=== PATIENT | female | born 1945 | race Caucasian/White ===

== ENCOUNTER → 2018-02-01 | Day surgery (SDC) | payer OTHER, MEDICARE ==
[~2018-02-01] VITALS: Ht 165.1 cm; Wt 68.0 kg
[~2018-02-01] MED LIST: ASPIRIN EC81 M1 PO; CALCIUM + VIT1 EACH PO; CENTRUM SILVER1 EAC3 PO; HYDROEYE PO; L-LYSINE500 M3 PO; NIFEDIPINE ER30 M1 PO; PROPRANOLOL HCL20 M1 PO; VESICARE10 MG PO; VITAMIN D1000 UNIT PO
[2018-02-01 08:03] LABS: ABSOLUTE BASOPHIL COUNT 0 /CUMM (0.0-0.2); ABSOLUTE EOSINOPHIL COUNT 0.1 /CUMM (0.0-0.7); ABSOLUTE GRANULOCYTE CT 3.5 /CUMM (1.4-6.5); ABSOLUTE LYMPH COUNT 1.2 /CUMM (1.2-3.4); ABSOLUTE MONOCYTE COUNT 0.5 /CUMM (0.10-0.60); BASOPHIL % 0.3 % (0.0-2.0); EOSINOPHIL % 1.4 % (0-5); HEMATOCRIT 37.3 % (37-47); MEAN CORPUSCULAR HGB 30.3 PG (27.0-31.0); MEAN CORPUSCULAR HGB CONC 33.5 G/DL (33.0-37.0); MEAN CORPUSCULAR VOLUME 90.4 FL (81.0-99.0); MEAN PLATELET VOLUME 8.3 FL (7.4-10.4); PLATELET COUNT 475 /CUMM (130-400); RBC DISTRIBUTION WIDTH 13.5 % (11.5-14.5); RED BLOOD CELL CT 4.13 /CUMM (4.20-5.40); WHITE BLOOD CELL COUNT 5.3 /CUMM (4.8-10.8)
--- NOTE | 2018-02-01 14:22 | Operative Report ---
Operative/Inv Procedure Report Surgery Date: 02/01/18 Name of Procedure: D&C hysteroscopy Pre-Operative Diagnosis: Endometrial polyp Post-Operative Diagnosis: Same, pathology pending Estimated Blood Loss: scant Surgeon/Warp Coiler: Nathalia Ramos MD Anesthesia: laryngeal mask airway Specimens: A scant amount of endometrial tissue sent to pathology Complications: None Condition: Stable Operative Indication: The patient is a 72-year-old para 2 who had a transvaginal ultrasound performed for pelvic pain. The ultrasound findings were significant for a fluid-filled endometrial cavity and a 5 mm complex area on the posterior uterine wall. The endometrial lining was otherwise noted to be 2 mm. Attempt to perform office hysteroscopy failed due to a severely stenotic cervical os. The recommendation was then made for D&C hysteroscopy to be performed under anesthesia. Operative/Procedure Note Note: The patient was taken to the operating room and placed in dorsal supine position. LMA was achieved without difficulty. The patient was then placed in dorsal lithotomy position and prepped and draped in the usual sterile fashion. The patient was then straight cathed and approximately 200 mL of clear yellow urine was discarded. A sterile speculum was then placed in the patient's vagina. A single-tooth tenaculum was applied to the anterior lip of the cervix. The cervix was then serially dilated beginning with the nasal lacrimal duct dilators to accommodate the diagnostic hysteroscope. Saline hysteroscope was then inserted to the uterus and an approximately 5 mm raised flattened area in the posterior wall of the uterus was noted. The lesion was noted to be covered with atrophic appearing endometrium. Bilateral normal tubal ostia were noted. The hysteroscope was then removed and sharp curettage was then performed. A scant amount of endometrial tissue was removed and sent to pathology. The posterior wall lesion was noted to be very firm, almost calcified in nature. The lesion was not able to be grasped with the polyp forceps. Curettage of that lesion was also performed and upon reinsertion of the hysteroscope the lesion was noted to be no longer present. All instruments were then removed from the patient's vagina. Good hemostasis was noted. All counts were reported to be correct 2. The patient was taken to the recovery room in stable condition. Findings: A 5 x 3 mm posterior wall raised area seemingly underneath the endometrium covered with atrophic appearing endometrium. No obvious polyps were noted. An otherwise normal-appearing uterine cavity. Discharge Disposition: PACU
== END ==
LOC: STS 01:56
PROVIDERS: Obstetrics & Gynecology
DX: N85.8 Other specified noninflammatory disorders of uterus (principal); N84.0 Polyp of corpus uteri; N88.2 Stricture and stenosis of cervix uteri; R10.2 Pelvic and perineal pain; I73.00 Raynaud's syndrome without gangrene
CPT/HCPCS: 36415; 93005; 93010; J0131; J2250; J2405